=== PATIENT | female | born 1965 | race Caucasian/White ===

== ENCOUNTER 2018-09-13 09:13 | Day surgery (SDC) | payer OTHER ==
[~2018-09-13] VITALS: Ht 162.6 cm; Wt 91.5 kg
--- NOTE | 2018-09-13 09:58 | PREAC ---
Date/Time of Note Date/Time of Note DATE: 09/13/18 TIME: 09:55 Anesthesia Eval and Record Evaluation Time Pre-Procedure Interview DATE: 09/13/18 TIME: 09:55 Age 53 Sex female NPO: 8 hrs Preoperative diagnosis screening Planned procedure colonoscopy Past Medical History Past Medical History: Includes Cardio: Dyslipidemia Surgery & Anesthesia Issues No known issue Meds Anticoagulation: No Beta Clay within 24 hr: No Reason Beta Clay not given: Pt. not on B-Clay Meds reviewed: Yes Allergies Allergies Reviewed: Yes Labs/Studies Labs Reviewed: Reviewed by anesthesiologist test: N/A Studies: ECG (n/a), CXR (n/a) Pre-procedure Exam Airway: Adequate mouth opening Mallampati: Mallampati I Teeth: Normal Lung: Normal Heart: Normal ASA Physical Status ASA physical status: 2 Emergency: None Planned Anesthetic General/MAC: MAC Planned Pain Management Parenteral pain med Pre-operative Attestations Prior to commencing anesthesia and surgery, the patient was re-evaluated, there was verification of: *The patient's identity *The results of appropriate recent lab work and preoperative vital signs *The above evaluation not changing prior to induction *Anesthetic plan, risk benefits, alternative and complications discussed with patient/family; questions answered; patient/family understands, accepts and wishes to proceed. JESSA MELO MD Sep 13, 2018 09:58
[2018-09-13 10:00] VITALS: Ht 162.6 cm; Wt 91.5 kg
[2018-09-13] MEDS ORDERED: PROPOFOL 20 ML ONE (10:00)
[2018-09-13] MEDS ORDERED: FENTAnyl 50 MCG/ML VIAL ONE ×2 (10:00→10:26)
[2018-09-13] MEDS ORDERED: ONDANSETRON 4 MG INJ IV PRN (10:00)
[2018-09-13 10:10] VITALS: BP 98/52; PULSE 84; RESP 24
[2018-09-13] MEDS ORDERED: omeprazole (10:19)
[2018-09-13] MEDS ORDERED: cholesterol med (10:19)
[2018-09-13] MEDS ORDERED: diclofenac (10:23)
[2018-09-13] MEDS ORDERED: EPHEDrine SULFATE 50 MG/5 ML SYG ONE (10:25)
[2018-09-13] MEDS ORDERED: PROPOFOL 0 ML ONE (10:25)
--- NOTE | 2018-09-13 10:39 | PAC ---
Date/Time of Note Date/Time of Note DATE: 09/13/18 TIME: 10:38 Post-Anesthesia Notes Post-Anesthesia Note Last documented vital signs HR 73. BP 90/56 Sat 98%, RR 19, temp 98.4 Activity: WNL Respiratory function: WNL Cardiovascular function: WNL Mental status: Baseline Pain reasonably controlled: Yes Hydration appropriate: Yes Nausea/Vomiting absent: No JESSA MELO MD Sep 13, 2018 10:39
[2018-09-13 10:51] VITALS: BP 81/49; PULSE 75; RESP 12
== END 2018-09-13 11:05 | disposition home or self-care (01) ==
LOC: GIL 09:13
PROVIDERS: ATTEND Internal Medicine Gastroenterology
DX: Z12.11 Encounter for screening for malignant neoplasm of colon (principal); K64.8 Other hemorrhoids; E78.5 Hyperlipidemia, unspecified
CPT/HCPCS: 45378; J3010; Z7610